=== PATIENT | male | born 1965 | race Caucasian/White ===

== ENCOUNTER 2020-10-04 07:02 | Emergency (ER) | payer OTHER, SELFPAY ==
--- NOTE | ~2020-10-04 | XR_ITS ---
EXAMINATION: XR KNEE, LEFT CLINICAL INFORMATION: Wound near prior amputation left leg. COMPARISON: Left femur 03/18/2018 TECHNIQUE: Imaging of the distal left femur is performed in AP and crosstable lateral projections. FINDINGS: There is an tsnfz-yfy-tujh amputation again seen. The distal femur shows no fracture or interval destructive process. No periostitis. No gas tracking in the soft tissue planes. There is heterotopic spurring at the amputated and again noted and some benign-appearing dystrophic calcification in the lower thigh soft tissues. XR/XR knee LT 2V IMPRESSION: Status post prior mfska-emb-vrzt amputation. No bony destructive process. No gas tracking in soft tissues.
[2020-10-04 07:26] VITALS: BP 156/99; PULSE 57; RESP 16; TEMP 36.7; O2SAT 98; BMI 20.2
--- NOTE | 2020-10-04 10:33 | ED_ITS ---
HPI - Wound/Laceration General Chief Complaint: Extremity Injury, Lower Stated Complaint: lac to left leg Time Seen by Provider: 10/04/20 09:03 Source: patient and EMS Mode of arrival: EMS Limitations: no limitations History of Present Illness HPI narrative: 55-year-old male with a past medical history of traumatic left uyluc-gdz-tmty amputation, atrial fibrillation, hypertension, hepatitis-C, seizure disorder, fibromyalgia and depression presenting to the ED with complaints of a wound to the site of the left BKA for approximately 1 month worsened the past few days with clear colored drainage for the patient. He denies any fevers, chills, dizziness, headaches, chest pain, shortness of breath, dyspnea on exertion, orthopnea, palpitations, nausea/vomiting/abdominal pain/diarrhea, dysuria, hematuria, weakness or any other symptom complaints or concerns at this time. Onset (ago): month(s) (One month worse within the past few days) Extremity Location: left: knee (At the site of the BKA) Associated symptoms: pain Related Data Previous Rx's Medication Instructions Recorded acetaminophen 500 mg tablet 1,000 mg PO QID PRN #14 tab 10/04/20 (Tylenol Extra Strength) cephalexin 500 mg capsule 500 mg PO BID 10 Days #20 cap 10/04/20 doxycycline monohydrate 100 mg 100 mg PO BID 10 Days #20 cap 10/04/20 capsule Allergies Allergy/AdvReac Type Severity Reaction Status Date / Time No Known Allergies Allergy Unverified 11/03/19 16:41 [No Known Allergies*] Review of Systems Review of Systems: Constitutional : No Fever, No Chills, Cardiovascular : No Chest Pain, No SOB Respiratory : No Dyspnea Gastrointestinal : No abdominal pain Musculoskeletal : No Joint Swelling Skin : positive skin wound, No lacerations, No Foreign bodies, No rash, No surrounding erythema Neuro : No Weakness, No Numbness/tingling Psych : No SI/HI/thoughts of self injury Yes all other systems are reviewed and are negative [facility] Past Medical History Attestation statement: The following information was validated with the patient. Social History Social History Advance Directives: No Advance Directives Information Provided: No Physical Exam Vital Signs: Vital Signs: Last Vital Signs Temp 98.1 F 08/19/21 07:26 Pulse 57 10/04/20 07:26 Resp 16 10/04/20 07:26 BP 156/99 H 10/04/20 07:26 Pulse Ox 98 10/04/20 07:26 Body Mass Index 20.2 vital signs have been reviewed as normal and appeared to be correct. Blood pressure hypertensive 156/99 Heart rate normal. Respiration rate normal. Temperature normal. Oxygen saturation normal. Appearance: Alert. Oriented X3. No acute distress. Head: Normal external exam. Normocephalic. Atraumatic. Eyes: PERRLA. EOMI. Conjunctiva and sclera normal. Eyelids normal. ENT: Pharynx normal. Uvula midline. Moist mucous membranes. Neck: Normal inspection. Neck supple. FROM. No adenopathy. No meningeal signs. CVS: Normal heart rate and rhythm. Heart sound normal. Pulses normal throughout. No murmurs/rales/gallops. Respiratory: No respiratory distress. Painless inspiration. Breath sounds normal. No wheezes/rales/rhonchi noted. Chest nontender. No accessory muscle usage noted or decreased air movement noted. Back: Full range of motion noted. No rashes/lesion/induration/fluctuance or signs of infection noted. Skin: Skin warm and dry. Normal skin color. Normal skin turgor. At the site of the left BKA patient has a superficial wound with mild clear drainage noted. No streaking/induration/fluctuance/surrounding erythema/foreign bodies or purulent drainage noted. Otherwise no additional rashes/lesions/lacerations noted. Extremities: All otherExtremities exhibit normal range of motion and nontender. Neuro: Oriented X 3. No motor deficit. No sensory deficit. Reflexes normal. Normal Steady gait. No focal neuro deficits noted. Course Course Course Narrative: 9:15am - 55-year-old male with a past medical history of traumatic left tthmp-jmm-msey amputation, atrial fibrillation, hypertension, hepatitis-C, seizure disorder, fibromyalgia and depression presenting to the ED with complaints of a wound to the site of the left BKA for approximately 1 month worsened the past few days with clear colored drainage for the patient. On exam patient is noted to have all superficial wound with clear colored drainage to the site of the stump. No surrounding erythema/streaking/induration/foreign bodies. Plan: I discussed this patient with Dr. Sykes and we both believe that the patient does not need any labs therefore x-ray ordered. Reevaluation(s) Reevaluation #1: - Xray negative for any acute processes. My plan was to discharge the patient on p.o. antibiotics doxycycline and Keflex with Tylenol and when I went into the room patient reported that he uses heroin and he last used last night and he is interested in detox at the [facility] therefore patient is placed in physician observation at this time because the patient needs more time to be evaluated by the care team for possible placement for detox will continue to monitor until then. Time: 10:51 Reevaluation #2: - care team attempted to place the patient in detox although there are no detox beds available at this time therefore he was given information so he can continue to attempt for detox beds. Otherwise will discha rge with antibiotics and referral to the wound clinic. Patient understands agrees with this plan. Time: 15:11 MDM - Wound/Laceration Medical Records Attestation: I reviewed the patient's medical records. Lab Data Labs: Lab Results 10/04/20 Range/Units 11:32 Urine Opiates Screen POSITIVE H (Not Detect) Urine Fentanyl Screen POSITIVE H (Not Detect) Ur Barbiturates Screen Not Detected (Not Detect) Ur Phencyclidine Scrn Not Detected (Not Detect) Ur Amphetamines Screen Not Detected (Not Detect) U Benzodiazepines Scrn Not Detected (Not Detect) Urine Cocaine Screen POSITIVE H (Not Detect) U Marijuana (THC) Screen POSITIVE H (Not Detect) Imaging Data Left femur x-ray: Attestation: I personally reviewed and interpreted this imaging study as follows: Radiologist's impression: FINDINGS: There is an zifzh-odz-wqin amputation again seen. The distal femur shows no fracture or interval destructive process. No periostitis. No gas tracking in the soft tissue planes. There is heterotopic spurring at the amputated and again noted and some benign-appearing dystrophic calcification in the lower thigh soft tissues. ? XR/XR knee LT 2V IMPRESSION: Status post prior khemh-hgt-vlfk amputation. No bony destructive process. No gas tracking in soft tissues. ? Discharge Plan Discharge Clinical Impression: Wound cellulitis, Pressure ulcer Patient Disposition: Home, Self-Care Instructions: Wound Infection (ED), Cellulitis (ED), Wound Healing and Your Diet (ED), Pressure Injury (ED) Prescriptions: New acetaminophen [Tylenol Extra Strength] 500 mg tablet 1,000 mg PO QID PRN (Reason: fever or pain) Qty: 14 RF: 0 doxycycline monohydrate 100 mg capsule 100 mg PO BID 10 Days Qty: 20 RF: 0 cephalexin 500 mg capsule 500 mg PO BID 10 Days Qty: 20 RF: 0 Referrals: [facility] [Provider Group] - 2 days [facility] [Provider Group] - 2 days Print Language: Bengali
[2020-10-04] MEDS: cephALEXin 500 MG CAPSULE PO (11:30)
[2020-10-04 12:22] LABS: Amphetamine Screen Urine Not Detected (Not Detect); Barbiturates, Urine Not Detected (Not Detect); Benzodiazepines Screen Urine Not Detected (Not Detect); Cannabinoid Screen Urine POSITIVE (Not Detect); Cocaine Screen Urine POSITIVE (Not Detect); Opiate Screen Urine POSITIVE (Not Detect); Phencyclidine Screen Urine Not Detected (Not Detect)
[2020-10-04 12:33] LABS: Fentanyl, urine POSITIVE (Not Detect)
--- NOTE | 2020-10-04 13:51 | MHC.RECOVSUP ---
? Reason for consult:Continuity of care o Current location: ED-2 o Identified substance use concern:Heroin - Withdrawal - Seeking ATS (detox) - Support ? Intervention: o ATS bed search started/completed/in process o Community resources provided o Harm reduction discussion ? Plan: o Referral to [facility] o Patient awaiting crisis evaluation o Patient to follow up with [facility] after discharge ? Additional information: Pt. seeking detox
--- NOTE | 2020-10-04 14:59 | MHC.RECOVRN ---
T/w made aware by recovery assistant that there are not ATS beds available and pt has been made aware. ED Clinical Coordinator notified.
== END 2020-10-04 15:52 | disposition home or self-care (01) ==
PROVIDERS: Physician Assistant Medical; Emergency Provider Internal Medicine; PCP Internal Medicine
DX: L03.116 Cellulitis of left lower limb (principal); L89.899 Pressure ulcer of other site, unspecified stage; F19.90 Other psychoactive substance use, unspecified, uncomplicated; Z89.512 Acquired absence of left leg below knee; I10 Essential (primary) hypertension; I48.91 Unspecified atrial fibrillation; B19.20 Unspecified viral hepatitis C without hepatic coma
CPT/HCPCS: 73560; 80307; 99283

== ENCOUNTER 2021-08-07 20:32 | Emergency (ER) | payer OTHER, SELFPAY ==
[2021-08-07 20:40] VITALS: BP 132/81; PULSE 100; O2SAT 98; BMI 22.3
--- NOTE | 2021-08-07 21:03 | ED.OVERDOSE ---
HPI - Overdose General Chief Complaint: Overdose Stated Complaint: OVERDOSE Time Seen by Provider: 08/07/21 20:59 Source: patient Mode of arrival: EMS Limitations: no limitations History of Present Illness HPI Narrative: 56-year-old male who presents emergency department for evaluation overdose treated with intranasal Narcan prior to arrival. patient states that he injected to bags of fentanyl. He states that he does use fentanyl several times a week. He denied being ill prior to using the fentanyl. The patient was found unresponsive by the police and he was given 2 doses intranasal Narcan 4 mg. The patient then woke up and was transported to the emergency department by ambulance. complaint: accidental overdose Onset (ago): minute(s) (30) Timing confirmed by: other ( Bystander, treated by police) How Overdose Was Discovered: other ( bystander) Context: Accidental Overdose: wanted to get high Treatments Prior to Arrival: narcan ( intranasal Narcan 4 mg x 2) Related Data Previous Rx's Medication Instructions Recorded acetaminophen 500 mg tablet 1,000 mg PO QID PRN fever or pain 10/04/20 (Tylenol Extra Strength) #14 tabs cephalexin 500 mg capsule 500 mg PO BID 10 days #20 caps 10/04/20 doxycycline monohydrate 100 mg 100 mg PO BID 10 days #20 caps 10/04/20 capsule Allergies Allergy/AdvReac Type Severity Reaction Status Date / Time No Known Allergies Allergy Verified 08/07/21 20:40 [No Known Allergies*] Review of Systems Review of Systems: Yes all other systems are reviewed and are negative [facility] Past Medical History [facility] Narrative: past medical history: Hepatitis-C, depression, fibromyalgia, seizure disorder. Past surgical history: Left above the knee amputation. Social history: The patient does smoke cigarettes, denies alcohol use. He does use injection opiates at least twice a week. Social History Social History Alcohol intake: never Patient Tobacco Use Status: Current everyday Tobacco user Use of substances other than those prescribed or required for medical reasons: Yes Substance Use Type: Heroin Advance Directives: No Advance Directives Information Provided: Yes Physical Exam Vital Signs: Vital Signs: Last Vital Signs Temp 98.0 F 08/08/21 06:42 Pulse 72 08/08/21 06:42 Resp 15 08/08/21 06:42 BP 129/85 08/08/21 06:42 Pulse Ox 95 08/08/21 06:42 O2 Del Method 08/08/21 06:42 BMI result Body Mass Index 22.3 Const: Other: Patient is somnolent but arousable, he speaks in a very soft was but answers all questions appropriately. He falls back asleep when he is not stimulated. HEENT: Head: Yes normal to inspection, Yes normocephalic and Yes atraumatic Ears: external ears normal General nose exam: Normal external nose present Face and sinus: Yes normal facial exam Mouth: Normal oral and palatal mucosa present Throat: Yes posterior oropharynx normal Eyes: General: appearance normal, both eyes and all related structures Pupils: Equal, round and reactive pupils present Neck: Neck: Yes normal visual inspection, Yes no lymphadenopathy, Yes trachea midline and Yes supple Chest: Chest palpation & inspection: normal inspection of the chest and normal palpation of entire chest wall Resp: Effort & Inspection: normal respiratory effort and able to speak in complete sentences Auscultation: clear to auscultation bilaterally Cardio: Rate: regular rate Rhythm: regular rhythm Heart sounds: S1 normal heart sound present, S2 normal heart sound present and no murmurs GI: Inspection: Yes normal to inspection Palpation (GI): Soft to palpation, nontender and no guarding Auscultation: normal bowel sounds : General: Yes no CVA tenderness Back/Spine/Pelvis: Back: no CVA tenderness Skin: General skin exam: no rashes or lesions noted Neuro: Cranial nerves: Yes CN's II-XII intact bilaterally and Yes Equal, round and reactive pupils present Cognition (Neuro): normal cognition Motor exam (neuro): 5/5 motor strength present throughout Extrem: General: Yes normal to inspection Psych: Appearance: grossly normal Speech and movement: Other speech and movement exam findings present (Psych) ( Patient is somnolent but arousable) Affect: normal affect Course Course Course Narrative: 56-year-old male who presents emergency department for an unintentional overdose, the patient states that he injected 2 bags of fentanyl. Patient was found by bystanders and police administered 2 doses of intranasal Narcan 4 mg each. Patient states that he was not sick in any way prior to injecting this drug. On examination the patient is somnolent but arousable, falls back asleep when not stimulated his exam is otherwise unremarkable. The patient will be placed on a cardiac and O2 saturation monitor and watch for at least 2-4 hours. I will consult our care team for a SUDE evaluation. 0819:The patient is still waiting for SUDE evaluation. He is interested in trying to get into a detox program. The patient will be kept in the emergency department until he is evaluated. at the end of my shift, the patient's care was turned over to my colleague, Dr. Venita Ponce Discharge Plan Discharge Clinical Impression: Accidental fentanyl overdose Prescriptions: No Action acetaminophen [Tylenol Extra Strength] 500 mg tablet 1,000 mg PO QID PRN (Reason: fever or pain) Qty: 14 0RF doxycycline monohydrate 100 mg capsule 100 mg PO BID 10 Days Qty: 20 0RF cephalexin 500 mg capsule 500 mg PO BID 10 Days Qty: 20 0RF
--- NOTE | 2021-08-07 21:34 | MHC.CARE ---
CARE TEAM met with pt at ED 22H. He was observed lying down with his back facing clinician. He presents with irritable mood. He did not disclose complaint for presenting to ED, stating you should know . He did not provided details of overdose. He expressed interest in receiving substance use treatment and did not further engage in conversation. He turned his back towards clinician and closed his eyes. Pt will be re-assessed once sober.
--- NOTE | 2021-08-07 21:41 | PC.NURSE ---
sewing techniques demonstrator applied, nsr 80-90s, o2 sat mid 90s, will continue to monitor.
[2021-08-07 22:00] VITALS: BP 100/56; PULSE 81; RESP 16; TEMP 36.8; O2SAT 97
--- NOTE | 2021-08-07 23:10 | PC.NURSE ---
Addendum entered by Belle Michelle 08/08/21 07:02: Report given to KALIN Munguia Original Note: report received from Maday
[2021-08-08 04:44] VITALS: BP 104/64; PULSE 55; RESP 12; TEMP 36.1; O2SAT 95
[2021-08-08 06:42] VITALS: BP 129/85; PULSE 72; RESP 15; TEMP 36.7; O2SAT 95
--- NOTE | 2021-08-08 08:26 | HO.SUDE ---
Met with pt in ED22 to discuss substance use. Upon approach, pt laying in bed, eyes closed and resting. Pt easily awoken. Pt fairly difficult to engage in conversation, guarded. Pt reports using one bag of heroin last night, IV, which resulted in overdose. Pt denies other substances. Pt states I was clean for over a year and one bag almost took my life. Pt reports over the past year utilizing meetings to maintain recovery. When asked about past tx, including ATS, pt states Oh yeah, many times. Pt would like ATS at this time, t/w will send referrals. Provider aware.
--- NOTE | 2021-08-08 09:31 | MHC.RECOVRN ---
Attempted to have pt complete phone intake with Andria Golden, however, pt states No, I'm leaving. I'm not doing all that. Pt immediately begins asking to leave and to retrieve belongings. Security and RN aware.
== END 2021-08-08 09:15 | disposition home or self-care (01) ==
PROVIDERS: Emergency Provider Emergency Medicine Emergency Medical Services; PCP Family Medicine
DX: T40.1X1A Poisoning by heroin, accidental (unintentional), initial encounter (principal); Y92.9 Unspecified place or not applicable; F17.200 Nicotine dependence, unspecified, uncomplicated; Z71.6 Tobacco abuse counseling; Z71.51 Drug abuse counseling and surveillance of drug abuser; Z79.899 Other long term (current) drug therapy
CPT/HCPCS: 99284

== ENCOUNTER 2021-09-26 22:28 | Emergency (ER) | payer OTHER, SELFPAY ==
--- NOTE | 2021-09-26 22:34 | ED_ITS ---
HPI - Overdose General Chief Complaint: Overdose Stated Complaint: OD Time Seen by Provider: 09/26/21 22:33 Source: patient, EMS and old records reviewed Mode of arrival: EMS Limitations: no limitations History of Present Illness HPI Narrative: 56-year-old male brought in by ambulance for evaluation of possible drug abuse and overdose that responded to Narcan. This is a 56-year-old male homeless [place] the park by the police unresponsive patient was given 12 mg total of Narcan and require BMV bagging, patient in ED decline using any drugs today however reportedly by EMS recreational drug bags was found around him in the park and IV track indu, patient did not admit to use drug today. Patient is awake now and decline intentional SI or HI. Related Data Home Medications Medication Instructions Recorded Confirmed gabapentin 300 mg capsule cap PO 08/08/21 hydrochlorothiazide 25 mg tablet 1 tab PO DAILY 08/08/21 08/08/21 levetiracetam 500 mg tablet 1 tab PO BID 08/08/21 08/08/21 sofosbuvir 400 mg-velpatasvir 100 1 tab PO DAILY 08/08/21 08/08/21 mg tablet Allergies Allergy/AdvReac Type Severity Reaction Status Date / Time No Known Allergies Allergy Verified 08/07/21 20:40 [No Known Allergies*] Review of Systems Review of Systems: All other systems are reviewed and are negative Constitutional: Reports as per HPI and Reports no additional constitutional complaints Eyes: Reports as per HPI and Reports no additional eye complaints Reports system reviewed and no additional complaints, except as documented Cardiovascular: Reports as per HPI and Reports no additional cardiovascular complaints Respiratory: Reports as per HPI and Reports no additional respiratory complaints Gastrointestinal: Reports as per HPI and Reports no additional gastrointestinal complaints Genitourinary: Reports no additional female genitourinary complaints Musculoskeletal: Reports no additional musculoskeletal complaints Skin/Breast: Reports system reviewed and no additional complaints, except as docu Psychiatric: Reports no additional psychiatric complaints Endocrine: Reports no additional endocrine complaints Hematologic/Lymphatic: Reports no additional hematologic/lymphatic complaints Allergic/Immunologic: Reports no additional allergic/immunologic complaints Reports system reviewed and no additional complaints, except as documented and Reports Abnormal speech present [facility] Social History Social History Alcohol intake: never Patient Tobacco Use Status: Current everyday Tobacco user Substance Use Type: Heroin Advance Directives: No Advance Directives Information Provided: No Physical Exam Vital Signs: Vital Signs: Last Vital Signs Temp 98.3 F 09/27/21 00:25 Pulse 78 09/27/21 00:25 Resp 10 L 09/27/21 00:25 BP 111/74 09/27/21 00:25 Pulse Ox 96 09/27/21 00:25 O2 Del Method 09/27/21 00:25 BMI result Body Mass Index 22.4 Vital signs have been reviewed as appeared to be correct. Blood pressure normal. Heart rate normal. Respiration rate normal. Temperature normal. Oxygen saturation normal. Appearance: Alert. Oriented X3. No acute distress. Head: Normal external exam. Normocephalic. Atraumatic. No Peterson signs noted. No raccoon eyes noted Eyes: PERRLA. EOMI. Conjunctiva and sclera normal. Eyelids normal. ENT: TM's Normal. Pharynx normal. Uvula midline. Moist mucous membranes. No trismus noted. No drooling noted. No muffled voice noted. Neck: Normal inspection. Neck supple. FROM. No adenopathy. Thyroid Normal. No meningeal signs. No neck mass noted. CVS: Normal heart rate and rhythm. Heart sound normal. No murmurs noted. Pulses normal throughout. Respiratory: No respiratory distress. Painless inspiration. Breath sounds normal. No wheezes/rales/rhonchi noted. Chest nontender. No accessory muscle usage noted or decreased air movement noted. Abdomen: Soft and nontender. Bowel sounds normal in all 4 quadrants. No distention noted. No organomegaly noted. No visible injury noted. Back: No CVA tenderness. Full range of motion noted. Skin: Skin warm and dry. Normal skin color. Normal skin turgor. No rashes/lesions/lacerations noted. Extremities: No lower extremity edema. s/p Left AKA Neuro: Oriented X 3. Cranial nerve exam: II-XII are grossly intact No motor deficit. No sensory deficit. Reflexes normal. Course Course Course Narrative: Patient remained in the ED for 8 hours for monitoring and observation, patient did not require more Narcan while in the ED maintained stable vital signs. Patient declined SI or HI, will obtain care team consult in the morning and will discharge the patient with Narcan to take home. Discharge Plan Discharge Clinical Impression: Accidental heroin overdose Patient Disposition: Home, Self-Care Instructions: Opioid Use Disorder (ED) Prescriptions: No Action levetiracetam 500 mg tablet 1 tab PO BID gabapentin 300 mg capsule PO hydrochlorothiazide 25 mg tablet 1 tab PO DAILY sofosbuvir-velpatasvir 400-100 mg tablet 1 tab PO DAILY Referrals: Duc Henson MD [Primary Care Provider] -
[2021-09-26 22:39] VITALS: BP 130/93; PULSE 83; RESP 8; O2SAT 99; BMI 22.4
[2021-09-27 00:25] VITALS: BP 111/74; PULSE 78; RESP 10; TEMP 36.8; O2SAT 96
[2021-09-27 03:15] VITALS: BP 111/74; PULSE 78; RESP 11; TEMP 36.6; O2SAT 96
== END 2021-09-27 08:07 | disposition home or self-care (01) ==
PROVIDERS: Emergency Provider Emergency Medicine; PCP Family Medicine
DX: T40.1X1A Poisoning by heroin, accidental (unintentional), initial encounter (principal); R40.4 Transient alteration of awareness; Y92.830 Public park as the place of occurrence of the external cause; F17.200 Nicotine dependence, unspecified, uncomplicated
CPT/HCPCS: 99283

== ENCOUNTER 2023-06-02 21:38 | Emergency (ER) | payer MEDICAID, SELFPAY ==
--- NOTE | ~2023-06-02 | XR_ITS ---
EXAMINATION: XR ANKLE, RIGHT CLINICAL INFORMATION: Ankle pain and swelling COMPARISON: 12/25/2018 and 12/01/2016 TECHNIQUE: AP, lateral, and mortise views of the right ankle. FINDINGS: Old healed fracture in the mid tibial diaphysis again noted. There is severe degenerative changes involving the ankle joint which have progressed markedly since prior studies of 12/25/2018 and 12/01/2016 there are erosions on the undersurface of the tibia anteriorly which have increased significantly since prior studies although some erosions were present in this region. A ankle joint effusion is present. No acute fractures are seen XR/XR ankle RT min 3V IMPRESSION: Severe progressive degenerative changes in the ankle joint with joint effusion and erosions.
--- NOTE | 2023-06-02 21:48 | MHC.EDTECH ---
patient refusing vitals. stated EMS already took them.
--- NOTE | 2023-06-02 21:52 | ED_ITS ---
HPI - Extremity Problem General Chief complaint: Extremity Injury, Lower Stated complaint: atraumatic right ankle pain, cellulitis, ETOH Time Seen by Provider: 06/02/23 21:47 Source: patient Mode of arrival: EMS Limitations: no limitations History of Present Illness HPI Narrative: patient with past medical history of traumatic left [id number] amputation, atrial fibrillation, hypertension, hepatitis-C, seizure disorder, fibromyalgia and depression presenting to the ED with complaining of pain and swelling of the right ankle joint for last few months patient does drink alcohol and use heroin off and on denies any injury no history of gout Related Data Home Medications ?Medication ?Instructions ?Recorded ?Confirmed gabapentin 300 mg capsule cap PO 08/08/21 hydrochlorothiazide 25 mg tablet 1 tab PO DAILY 08/08/21 08/08/21 levetiracetam 500 mg tablet 1 tab PO BID 08/08/21 08/08/21 sofosbuvir 400 mg-velpatasvir 100 1 tab PO DAILY 08/08/21 08/08/21 mg tablet Previous Rx's ?Medication ?Instructions ?Recorded ibuprofen 600 mg tablet 600 mg PO Q6H PRN fever or pain 06/03/23 #30 tabs prednisone 20 mg tablet 40 mg (2 x 20 mg) PO DAILY #10 tabs 06/03/23 Allergies Allergy/AdvReac Type Severity Reaction Status Date / Time No Known Allergies Allergy Verified 06/02/23 22:04 [No Known Allergies*] Review of Systems 2 Review of Systems: Yes all other systems are reviewed and are negative PMFSH Social History Social History Alcohol intake: never Patient Tobacco Use Status: Current everyday Tobacco user Substance Use Type: Heroin Advance Directives: No Advance Directives Information Provided: Yes Physical Exam 2 Vital Signs: Vital Signs: Last Vital Signs Temp 98.9 F 06/02/23 22:03 Pulse 82 06/02/23 22:03 Resp 18 06/03/23 00:15 BP 159/91 H 06/02/23 22:03 Pulse Ox 98 06/02/23 22:03 O2 Del Method Room Air 06/02/23 22:03 BMI result Body Mass Index 26.3 Appearance: Alert. Oriented X3. No acute distress. ETOH+ CVS: Normal heart rate and rhythm. Pulses normal. Respiratory: No respiratory distress. Equal air entry bilateral, Abdomen: Soft and nontender. Bowel sounds are present, Skin: Skin warm and dry. Normal skin color. Normal skin turgor. Extremities: Left AKA right ankle swollen with mild effusion skin color and temperature normal no open wound no signs of infection Neuro: Oriented X 3. Medications Administered Discontinued Medications Generic Name Dose Route Start Last Admin Trade Name Freq PRN Reason Stop Dose Admin Potassium Bicarbonate 25 meq 06/03/23 00:13 06/03/23 02:06 Potassium Bicarbonate/Cit Ac 25 Meq Tablet.Eff PO 06/03/23 00:14 25 meq ONCE ONE Administration Prednisone 40 mg 06/03/23 00:13 06/03/23 02:06 Prednisone 20 Mg Tablet PO 06/03/23 00:14 40 mg ONCE ONE Administration Medical Decision Making Medical Decision Making [facility] Narrative: Patient alcoholic comes here for right ankle pain and swelling for several months workup showed slightly fusion in the left ankle with elevated uric acid likely patient has gout discharge patient home on prednisone advised to follow with PCP Lab Data [facility] Lab Attestation statement: I reviewed the patient's lab results. 06/02/23 22:33 06/02/23 22:33 Labs: Lab Results 06/02/23 Range/Units 22:33 WBC 10.0 (4.8-10.8) X10*3/uL RBC 5.50 (4.60-5.80) X10*6/uL Hgb 16.6 (14.0-18.0) g/dl Hct 48.2 (42.0-52.0) % MCV 87.6 (80.0-98.0) fL MCH 30.2 (27.0-33.0) pg MCHC 34.4 (31.0-36.0) g/dl RDW 12.1 (11.0-16.0) % Plt Count 263 (160-400) X10*3/uL MPV 11.4 (9.4-12.4) fL Immature Gran % (Auto) 0.1 (0.0-0.4) % Neut % (Auto) 62.0 (45-73) % Lymph % (Auto) 29.8 (20-40) % Dyer % (Auto) 7.2 (2-11) % Eos % (Auto) 0.5 (0-4) % Baso % (Auto) 0.4 (0-2) % Lymph # (Auto) 3.0 (1.2-4.9) X10*3/uL Dyer # (Auto) 0.7 (0.1-1.2) X10*3/uL Eos # (Auto) 0.1 (0.0-0.4) X10*3/uL Baso # (Auto) 0.0 (0.0-0.2) X10*3/uL Abs Immat Gran (auto) 0.01 (0.00-0.03) X10*3/uL Absolute Neuts (auto) 6.2 (2.0-8.3) x10*3/uL Absolute Nucleated RBC 0.000 (0.0-0.012) X10*3/uL Nucleated RBC % (auto) 0.0 (0.0-0.2) /100WBC Sodium 141 (135-145) mmol/L Potassium 3.2 L (3.3-5.1) mmol/L Chloride 106 (96-108) mmol/L Carbon Dioxide 20 L (22-29) mmol/L Anion Gap 18 (12-20) BUN 10 (9-16) mg/dL Creatinine 0.88 (0.5-1.4) mg/dL Estim Creat Clear Calc 97.4 Estimated GFR > 60 Random Glucose 116 H (60-115) mg/dL Uric Acid 7.9 H (3.4-7.0) mg/dL Calcium 9.3 (8.4-10.2) mg/dL Magnesium 2.1 (1.6-2.6) mg/dL Total Bilirubin 0.3 (0.0-1.0) mg/dL AST 28 (5-37) U/L ALT 25 (0-40) U/L Alkaline Phosphatase 95 (39-117) U/L Total Protein 9.6 H (6.5-8.0) g/dL Albumin 4.1 (3.5-5.0) g/dL Ethyl Alcohol 174 mg/dL Discharge Plan Discharge Clinical Impression: Gouty arthritis of right ankle, Alcohol abuse Patient Disposition: Home, Self-Care Instructions: Gout (ED), Abuse of Alcohol (ED) Additional Instructions: Stop drinking alcohol Prednisone as advised for pain and inflammation Ibuprofen for pain Have food containing high potassium leg banana/orange juice Prescriptions: New prednisone 20 mg tablet 40 mg PO DAILY Qty: 10 0RF ibuprofen 600 mg tablet 600 mg PO Q6H PRN (Reason: fever or pain) Qty: 30 0RF No Action levetiracetam 500 mg tablet 1 tab PO BID gabapentin 300 mg capsule PO hydrochlorothiazide 25 mg tablet 1 tab PO DAILY sofosbuvir-velpatasvir 400-100 mg tablet 1 tab PO DAILY Print Language: Hebrew
[2023-06-02 22:03] VITALS: BP 150/90; BP 159/91; PULSE 70; PULSE 82; RESP 18; TEMP 37.2; O2SAT 98; O2SAT 99; BMI 26.3
[2023-06-02 22:37] LABS: MANUAL DIFF FLAG NO
--- NOTE | 2023-06-02 22:39 | PC.NURSE ---
Patient is alert and oriented x3, he is able to make his need known. Patient c/o 10/10 pain in right ankle, Dr. Sykes aware. Labs drawn and sent to lab for processing. Patient resting in a stretcher bed. Plan of care ongoing.
[2023-06-02 22:43] LABS: Basophils Percent Auto 0.4 % (0-2); Eosinophils Absolute Auto 0.1 X10*3/uL (0.0-0.4); Eosinophils Percent Auto 0.5 % (0-4); Hematocrit 48.2 % (42.0-52.0); Hemoglobin 16.6 g/dl (14.0-18.0); Imm Gran Abs Auto 0.01 X10*3/uL (0.00-0.03); Imm Gran Pct Auto 0.1 % (0.0-0.4); Lymphocytes Percent Auto 29.8 % (20-40); Mean Corpuscular HGB Conc 34.4 g/dl (31.0-36.0); Mean Corpuscular Hemoglobin 30.2 pg (27.0-33.0); Mean Corpuscular Volume 87.6 fL (80.0-98.0); Mean Platelet Volume 11.4 fL (9.4-12.4); Monocytes Absolute Auto 0.7 X10*3/uL (0.1-1.2); Monocytes Percent Auto 7.2 % (2-11); Neutrophils Absolute Auto 6.2 x10*3/uL (2.0-8.3); Platelet Count 263 X10*3/uL (160-400); Red Cell Distribution Width 12.1 % (11.0-16.0)
[2023-06-02 22:51] LABS: Alanine Aminotransferase 25 U/L (0-40); Albumin Level 4.1 g/dL (3.5-5.0); Alkaline Phosphatase 95 U/L (39-117); Anion Gap 18 (12-20); Aspartate Amino Transferase 28 U/L (5-37); Bilirubin Total 0.3 mg/dL (0.0-1.0); Blood Urea Nitrogen 10 mg/dL (9-16); Calcium 9.3 mg/dL (8.4-10.2); Carbon Dioxide 20 mmol/L (22-29); Chloride 106 mmol/L (96-108); Creatinine Clr Calc Pharmacy 97.4; Estimated Glomerular Filt Rate > 60; Ethanol 174 mg/dL; Glucose Random 116 mg/dL (60-115); Magnesium 2.1 mg/dL (1.6-2.6); Potassium 3.2 mmol/L (3.3-5.1); Sodium 141 mmol/L (135-145); Total Protein 9.6 g/dL (6.5-8.0); Uric Acid 7.9 mg/dL (3.4-7.0)
[2023-06-03 00:15] VITALS: RESP 18
[2023-06-03] MEDS: predniSONE 20 MG TABLET 40 MG PO (02:06)
[2023-06-03] MEDS: Potassium Bicarbonate/Cit AC 25 MEQ TABLET.EFF PO (02:06)
[2023-06-03 05:10] VITALS: BP 151/84; PULSE 89; RESP 18; TEMP 36.8; O2SAT 98
[2023-06-03 05:11] VITALS: BP 151/84; PULSE 89; RESP 18; TEMP 36.8; O2SAT 98
== END 2023-06-03 05:11 | disposition home or self-care (01) ==
PROVIDERS: Emergency Provider Internal Medicine
DX: M10.9 Gout, unspecified (principal); F10.10 Alcohol abuse, uncomplicated; Y90.6 Blood alcohol level of 120-199 mg/100 ml; I10 Essential (primary) hypertension; I48.91 Unspecified atrial fibrillation; G40.909 Epilepsy, unspecified, not intractable, without status epilepticus; Z89.512 Acquired absence of left leg below knee
CPT/HCPCS: 36415; 73610; 80053; 80307; 83735; 84550; 85025; 99283; 99284

== ENCOUNTER 2023-08-21 16:01 | Emergency (ER) | payer MEDICAID, SELFPAY ==
[2023-08-21 16:08] VITALS: BP 124/72; BP 135/93; PULSE 85; PULSE 90; RESP 16; TEMP 37.1; O2SAT 95; O2SAT 96; BMI 57.8
--- NOTE | 2023-08-21 16:15 | PC.NURSE ---
Pt refusing oil changer, security at bedside.
--- NOTE | 2023-08-21 16:27 | PC.NURSE ---
Pt changed over by security, items placed in decon. Pts wheelchair at bedside.
--- NOTE | 2023-08-21 18:21 | ED.OVERDOSE ---
HPI - Overdose General Chief Complaint: Overdose Stated Complaint: Heroin OD, 4mg narcan given Time Seen by Provider: 08/21/23 18:19 Source: patient and EMS Mode of arrival: EMS Limitations: no limitations History of Present Illness ED Provider: Christen Ham PA-C HPI Narrative: 58-year-old male with a history of opioid use disorder, last use was 2 years ago, history of seizure disorder, AFib, fibromyalgia, depression, hepatitis-C, HTN, left AKA after traumatic injury in 1998, history of recent right ankle repair who presents to the ER via EMS after he was found unconscious on the sidewalk. He was given 4 mg of Narcan by a bystander. He was alert and oriented on ER arrival. He states he is disappointed in himself for using heroin, admitted to using 1 bag today. He recently had surgery on the right ankle and was prescribed Dilaudid and thinks this may have contributed to his relapsed today. He denies any intentional overdose, suicidal thoughts or depression. complaint: accidental overdose Onset (ago): unknown Related Data Home Medications ?Medication ?Instructions ?Recorded ?Confirmed gabapentin 300 mg capsule cap PO 08/08/21 hydrochlorothiazide 25 mg tablet 1 tab PO DAILY 08/08/21 08/08/21 levetiracetam 500 mg tablet 1 tab PO BID 08/08/21 08/08/21 sofosbuvir 400 mg-velpatasvir 100 1 tab PO DAILY 08/08/21 08/08/21 mg tablet Previous Rx's ?Medication ?Instructions ?Recorded ibuprofen 600 mg tablet 600 mg PO Q6H PRN fever or pain 06/03/23 #30 tabs prednisone 20 mg tablet 40 mg (2 x 20 mg) PO DAILY #10 tabs 06/03/23 Allergies Allergy/AdvReac Type Severity Reaction Status Date / Time No Known Allergies Allergy Verified 08/21/23 16:12 [No Known Allergies*] Review of Systems Review of Systems: Yes all other systems are reviewed and are negative [facility] Social History Social History Alcohol intake: never Patient Tobacco Use Status: Current everyday Tobacco user Smoked in Last 30 Days: No Use of substances other than those prescribed or required for medical reasons: Yes Substance Use Type: Heroin Substance Use Frequency: Chronic Longstanding Substance Use Frequency Other:: was 2 years sober, relapsed today Last Used Substance: Just Prior to Admission Any prior treatment program specific to substance use: No Advance Directives: No Advance Directives Information Provided: Yes Physical Exam Vital Signs: Vital Signs: Last Vital Signs Temp 98.7 F 08/21/23 16:08 Pulse 85 08/21/23 16:08 Resp 16 08/21/23 16:08 BP 135/93 H 08/21/23 16:08 Pulse Ox 96 08/21/23 16:08 O2 Del Method Room Air 08/21/23 16:08 BMI result Body Mass Index 57.8 Appearance: Alert. Oriented X3. No acute distress. Head: normocephalic, atraumatic. Eyes: Pupils [place], round and reactive to light ENT: Pharynx normal. No tonsillar swelling or exudate. Neck: Normal inspection. Neck supple. CVS: Normal heart rate and rhythm. Pulses normal. Respiratory: No respiratory distress. Breath sounds normal. Abdomen: Soft and nontender. +BS x4 Skin: Skin warm and dry. Normal skin color. Normal skin turgor. No rashes. Extremities: left [id number] amputation with well-healed stump. Right ankle with surgical incision and sutures in place, no surrounding erythema or discharge. Neuro/psych: Oriented X 3. No motor deficit. No sensory deficit. CN II-XII intact. Normal speech and cognition. Medical Decision Making Medical Decision Making MDM Narrative: 58-year-old male presents to the ER after he was found unconscious on the sidewalk. He required Narcan by a bystander. He arrives to the ER awake, alert, oriented. He spent 2 hours in the emergency department being observed and remained awake and alert. He denies any need for detox, states he has not used heroin in 2 years and is disappointed in himself for using today. No SI or HI. He would like to be discharged home. Patient counseled, sent home with home Narcan. Stable for discharge. Differential Diagnosis Differential Diagnoses: The differential diagnosis associated with the presentation includes Polysubstance overdose, heroin overdose, suicide attempt Independent Historian Clinical information obtained from an independent historian. History obtained from or confirmed by: EMS External Record Review External record reviewed: Outpatient record, Prior outpatient labs and Prior outpatient radiology Prescription Management I considered prescription management with: Other ( Narcan) Chronic Conditions Patient?s care impacted by: Other ( polysubstance abuse, fibromyalgia, hepatitis) Social Determinants Patient?s care significantly limited by Social Determinants of Health including: Other Social Determinant of Health ( wheelchair-bound) Critical Care Time Critical Care Time Critical Care Time: No Discharge Plan Discharge Clinical Impression: Drug overdose Patient Disposition: Home, Self-Care Instructions: Adult Overdose (ED) Additional Instructions: do not do drugs, they can kill you If you develop new or worsening symptoms call 911 or come back to the ER for further evaluation. Prescriptions: No Action levetiracetam 500 mg tablet 1 tab PO BID gabapentin 300 mg capsule PO hydrochlorothiazide 25 mg tablet 1 tab PO DAILY sofosbuvir-velpatasvir 400-100 mg tablet 1 tab PO DAILY prednisone 20 mg tablet 40 mg PO DAILY Qty: 10 0RF ibuprofen 600 mg tablet 600 mg PO Q6H PRN (Reason: fever or pain) Qty: 30 0RF Print Language: Upper Sorbian
[2023-08-21 19:34] VITALS: BP 132/78; PULSE 90; RESP 18; TEMP 36.8; O2SAT 97
[2023-08-21] MEDS: Naloxone HCl Nasal TAKE HOME 4 MG SPRAY 8 MG NOSTRILALT (19:53)
== END 2023-08-21 19:56 | disposition home or self-care (01) ==
PROVIDERS: Emergency Provider Emergency Medicine
DX: T40.1X1A Poisoning by heroin, accidental (unintentional), initial encounter (principal); R40.2A Nontraumatic coma due to underlying condition; Y92.480 Sidewalk as the place of occurrence of the external cause; I10 Essential (primary) hypertension; I48.91 Unspecified atrial fibrillation; F32.A Depression, unspecified; Z87.820 Personal history of traumatic brain injury; F17.200 Nicotine dependence, unspecified, uncomplicated
CPT/HCPCS: 99283; 99285

== ENCOUNTER 2023-08-27 20:17 | Emergency (ER) | payer MEDICAID, SELFPAY ==
[2023-08-27 20:22] VITALS: BP 132/80; PULSE 78; O2SAT 91
[2023-08-27 20:25] VITALS: BP 129/75; PULSE 85; RESP 17; TEMP 37; O2SAT 96
[2023-08-27 20:30] VITALS: BP 129/70; PULSE 83; RESP 18; TEMP 36.8; O2SAT 93; BMI 27.7
--- NOTE | 2023-08-27 20:55 | ED_ITS ---
HPI - General Adult General Chief complaint: ETOH/Substance Use Stated complaint: ETOH Time Seen by Provider: 08/27/23 20:23 Source: patient, RN notes reviewed and old records reviewed Mode of arrival: EMS History of Present Illness ED Provider: Johanne BANKS narrative: 58-year-old male with medical history significant for AFib, seizure disorder, depression, hepatitis-C, hypertension presents to the ER via EMS after being found sleeping [place] bus [place]. EMS reports suspecting alcohol and drug abuse which the patient denies today It is difficult to get an accurate history are the patient is he is not entirely cooperative The patient is not combative it is difficult to redirect He states that he feels well and offers no complaints The patient does note that he has a recent right ankle repair at [facility] He reports following up with the with the orthopedics yesterday at the office He states that he has no issues with the right ankle He denies suicidality Related Data Home Medications ?Medication ?Instructions ?Recorded ?Confirmed gabapentin 300 mg capsule cap PO 08/08/21 hydrochlorothiazide 25 mg tablet 1 tab PO DAILY 08/08/21 08/08/21 levetiracetam 500 mg tablet 1 tab PO BID 08/08/21 08/08/21 sofosbuvir 400 mg-velpatasvir 100 1 tab PO DAILY 08/08/21 08/08/21 mg tablet Previous Rx's ?Medication ?Instructions ?Recorded ibuprofen 600 mg tablet 600 mg PO Q6H PRN fever or pain 06/03/23 #30 tabs prednisone 20 mg tablet 40 mg (2 x 20 mg) PO DAILY #10 tabs 06/03/23 Allergies Allergy/AdvReac Type Severity Reaction Status Date / Time No Known Allergies Allergy Verified 08/27/23 20:46 [No Known Allergies*] Review of Systems Constitutional: Constitutional: Denies body ache(s), Denies chills and Denies headache(s) Eyes: Eyes: Denies blurry vision ENT: Denies headache(s) Cardiovascular: Cardiovascular: Denies chest pain and Denies dyspnea Respiratory: Respiratory: Denies cough and Denies dyspnea Musculoskeletal: Musculoskeletal: Denies arthralgias, Denies joint swelling and Denies limited range of motion Integumentary/Breasts: Skin/Breast: Denies rash Neurologic: Denies headache(s) [facility] Social History Social History Alcohol intake: never Patient Tobacco Use Status: Current everyday Tobacco user Substance Use Type: Heroin Advance Directives: No Advance Directives Information Provided: No Do you have a plan to hurt others: No Plan Physical Exam ED Vital Signs: Vital Signs - 24 hr 08/27/23 20:25 08/27/23 20:30 Temperature 98.6 F 98.3 F Pulse Rate 85 83 Respiratory Rate 17 18 Blood Pressure 129/75 129/70 Pulse Oximetry 96 93 Oxygen Delivery Method Room Air Room Air BMI result Body Mass Index 27.7 Const General: healthy appearing, comfortable, no acute distress, alert and awake; No cooperative Nutritional Appearance: well nourished Orientation/consciousness: patient oriented x3 HENMT Head: Yes normocephalic and Yes atraumatic Eyes Eyelids: Yes eyelids normal Conjunctivae: conjunctivae normal Sclerae: sclerae normal Corneas: corneas normal Pupils: Equal, round and reactive pupils present EOM: EOMs intact bilaterally Neck Neck: Yes full ROM Resp Effort & Inspection: normal respiratory effort, able to speak in complete sentences and not labored Cardio Rate: regular rate Rhythm: regular rhythm Skin General skin exam: elasticity normal Neuro General: patient oriented x3 Cranial nerves: Yes Equal, round and reactive pupils present and Yes Bilaterally intact EOM present Extrem Other: Left AKA Psych Other: Patient's thought process is somewhat sporadic. He is difficult to redirect. The patient has some manic tendencies. He is quite restless in the stretcher Course Reevaluation(s) Reevaluation #1: Patient now very agitated, when I asked him what is wrong he is screaming that he wants to get out of here. He has no complaints vitals are stable he will be discharged Time: 21:30 Medical Decision Making Medical Decision Making MDM Narrative: 58-year-old male presents for evaluation after being found sleeping at a bus stop. He offers no complaints. He denies any alcohol or substance abuse but is slightly agitated and uncooperative. I suspected he is not being entirely truthful in regards to any substance abuse. However the patient is nontoxic appearing, he is not suicidal. Plan to allow the patient to rest and re- evaluate Differential Diagnosis Differential Diagnoses: The differential diagnosis associated with the presentation includes Substance abuse Polysubstance abuse Agitation Arabella Discharge Plan Discharge Clinical Impression: Agitation Patient Disposition: Home, Self-Care Instructions: Polysubstance Abuse (ED) Additional Instructions: Return for new or worsening symptoms Prescriptions: No Action levetiracetam 500 mg tablet 1 tab PO BID gabapentin 300 mg capsule PO hydrochlorothiazide 25 mg tablet 1 tab PO DAILY sofosbuvir-velpatasvir 400-100 mg tablet 1 tab PO DAILY prednisone 20 mg tablet 40 mg PO DAILY Qty: 10 0RF ibuprofen 600 mg tablet 600 mg PO Q6H PRN (Reason: fever or pain) Qty: 30 0RF Print Language: Panamanian
[2023-08-27 21:34] VITALS: BP 129/70; PULSE 83; RESP 18; TEMP 36.8; O2SAT 93
== END 2023-08-27 21:36 | disposition home or self-care (01) ==
PROVIDERS: Emergency Provider Emergency Medicine
DX: R45.1 Restlessness and agitation (principal); F19.10 Other psychoactive substance abuse, uncomplicated
CPT/HCPCS: 99283

== ENCOUNTER 2023-08-30 23:39 | Emergency (ER) | payer MEDICAID, SELFPAY ==
--- NOTE | 2023-08-30 | ECG_ITS ---
Test Reason : OVERDOSE Blood Pressure : / mmHG Vent. Rate : 084 BPM Atrial Rate : 084 BPM P-R Int : 160 ms QRS Dur : 090 ms QT Int : 372 ms P-R-T Axes : 070 064 062 degrees QTc Int : 439 ms Normal sinus rhythm Normal ECG When compared with ECG of 14-JAN-2019 15:15, No significant change was found Referred By: Generic ED Physician Electronically Signed By:WILBERTO CRAWFORD MD
[2023-08-30 23:45] VITALS: BP 140/84; BP 140/98; PULSE 106; PULSE 80; RESP 12; TEMP 36.5; O2SAT 100; O2SAT 97; BMI 21.3
[2023-08-31] VITALS: BP 125/94; PULSE 78; RESP 24; TEMP 36.5; O2SAT 94
[2023-08-31 00:31] LABS: Hematocrit 41.3 % (42.0-52.0); Hemoglobin 13.7 g/dl (14.0-18.0); Mean Corpuscular HGB Conc 33.2 g/dl (31.0-36.0); Mean Corpuscular Hemoglobin 30.4 pg (27.0-33.0); Mean Corpuscular Volume 91.6 fL (80.0-98.0); Mean Platelet Volume 11.5 fL (9.4-12.4); NRBC Pct Auto 0.3 /100WBC (0.0-0.2); PLT CLUMP 1; Red Blood Count 4.51 X10*6/uL (4.60-5.80); Red Cell Distribution Width 13.5 % (11.0-16.0)
[2023-08-31 00:35] LABS: White Blood Count 6.9 X10*3/uL (4.8-10.8)
[2023-08-31 00:36] LABS: Platelet Count 237 X10*3/uL (160-400)
[2023-08-31 00:42] LABS: Alanine Aminotransferase 17 U/L (0-40); Albumin Level 3.8 g/dL (3.5-5.0); Anion Gap 21 (12-20); Aspartate Amino Transferase 39 U/L (5-37); Bilirubin Total 0.4 mg/dL (0.0-1.0); Blood Urea Nitrogen 12 mg/dL (9-16); Calcium 9.2 mg/dL (8.4-10.2); Carbon Dioxide 16 mmol/L (22-29); Chloride 106 mmol/L (96-108); Creatinine Clr Calc Pharmacy 71.8; Estimated Glomerular Filt Rate > 60; Ethanol < 10 mg/dL; Glucose Random 154 mg/dL (60-115); Potassium 3.7 mmol/L (3.3-5.1); Sodium 139 mmol/L (135-145); Total Protein 8.7 g/dL (6.5-8.0)
--- NOTE | 2023-08-31 00:47 | ED_ITS ---
HPI - Overdose General Chief Complaint: ETOH/Substance Use Stated Complaint: OD Time Seen by Provider: 08/31/23 00:25 Source: EMS Mode of arrival: EMS Limitations: altered mental status History of Present Illness ED Provider: Dr. Melba Ken HPI Narrative: Patient comes to the emergency room via ambulance. Today, patient was found unresponsive by [employer] in the street. Patient known to use drugs. Per EMS, the fire department gave the patient 12 mg of Narcan within 5 seconds. Patient woke up immediately, reports that he used a bag of heroin and drank a few beers. Patient was awake and alert when EMS arrived. Here in the ED, patient is somnolent, easily arousable, falls right back asleep. Denies any SI or HI, denies any falls or injuries. Related Data Home Medications ?Medication ?Instructions ?Recorded ?Confirmed gabapentin 300 mg capsule cap PO 08/08/21 hydrochlorothiazide 25 mg tablet 1 tab PO DAILY 08/08/21 08/08/21 levetiracetam 500 mg tablet 1 tab PO BID 08/08/21 08/08/21 sofosbuvir 400 mg-velpatasvir 100 1 tab PO DAILY 08/08/21 08/08/21 mg tablet Previous Rx's ?Medication ?Instructions ?Recorded ibuprofen 600 mg tablet 600 mg PO Q6H PRN fever or pain 06/03/23 #30 tabs prednisone 20 mg tablet 40 mg (2 x 20 mg) PO DAILY #10 tabs 06/03/23 Allergies Allergy/AdvReac Type Severity Reaction Status Date / Time No Known Allergies Allergy Verified 08/31/23 00:17 [No Known Allergies*] Review of Systems 2 Review of Systems: Constitutional : No Weight loss, No Fever, No Chills, No Night Sweats, No Fatigue, No Malaise ENT/Mouth : No Hearing loss, No Ear Pain, No Nasal Congestion, No Sinus Pain, No Hoarseness, No sore throat, No Rhinorrhea, No Swallowing Difficulty Eyes: No Eye Pain, No Swelling, No Redness, No Foreign Body, No Discharge, No Vision Changes Cardiovascular : No Chest Pain, No SOB, No Dyspnea on Exertion, No Orthopnea, No Edema, No Palpitations Respiratory : No Cough, No Sputum, No Wheezing, No Smoke Exposure, No Dyspnea Gastrointestinal : No Nausea, No Vomiting, No Diarrhea, No Constipation, No abdominal Pain, No Hematochezia, No Melena Genitourinary : no irregular bleeding, No Dysuria, No Urinary Frequency, No Hematuria, No Urinary Incontinence, No Urgency, No Flank Pain, No Urinary Flow Changes, No Hesitancy Musculoskeletal : No joint pain, No Myalgias, No Joint Swelling Skin : No Skin Lesions, No rash Neuro : No Weakness, No Numbness, No Paresthesias, No Loss of Consciousness, No Dizziness, No Headache Psych : No Anxiety/Panic, No Depression, No SI/HI/AH/VH, admits to using drugs and alcohol Heme/Lymph: No Bruising, No Bleeding,No Lymphadenopathy Endocrine : No Polyuria, No Polydipsia, No Temperature Intolerance [facility] Past Medical History Medical History (Updated 08/31/23 @ 00:55 by Melba Ken MD) Depression Hypertension Hepatitis C Atrial fibrillation Seizure disorder Surgical History (Updated 08/31/23 @ 00:48 by Melba Ken MD) History of left above knee amputation Social History Social History Alcohol intake: never Patient Tobacco Use Status: Current everyday Tobacco user Substance Use Type: Heroin Advance Directives: No Advance Directives Information Provided: No Do you have a plan to hurt others: No Plan Physical Exam 2 Vital Signs: Vital Signs: Last Vital Signs Temp 97.7 F 08/31/23 00:00 Pulse 78 08/31/23 00:00 Resp 24 H 08/31/23 00:00 BP 125/94 H 08/31/23 00:00 Pulse Ox 94 08/31/23 00:00 O2 Del Method Room Air 08/31/23 00:00 BMI result Body Mass Index 21.3 Const: Other: Appearance: Somnolent, easily arousable, falls back asleep Eyes: Pupils equal, round and reactive to light. ENT: Pharynx normal. Neck: Normal inspection. Neck supple. No lymph nodes noted. No crepitus CVS: Normal heart rate and rhythm. Pulses normal. Normal S1 and S2 Respiratory: No respiratory distress. Breath sounds normal. No Wheezing. No rales Abdomen: Soft and nontender. No rigidity. No distention. Skin: Skin warm and dry. Normal skin color. Normal skin turgor. Extremities: No lower extremity edema. No Lacerations. No Rash Neuro: Oriented X 3. No motor deficit. No sensory deficit. Moving all extremities. No slurred speech. CN 2 through 12 grossly intact Psych: calm somnolent, denies SI or HI Course Course Course Narrative: -all of patient's labs pending -patient denies SI or HI -denies any falls or injuries Medical Decision Making Medical Decision Making [facility] Narrative: -patient's vitals are within normal limits, oxygen saturation 94% on room air. -my interpretation of labs: Chemistry at baseline -reviewing patient's previous records, patient has tested positive for opiates, fentanyl, cocaine -once patient is awake and alert, patient will be assessed again for SI and HI, sude evaluation, and if discharge, patient will be given 8 mg of Narcan for home -pending Hematology, troponin, urine toxicology -physician observation started that 00:56 Differential Diagnosis Differential Diagnoses: The differential diagnosis associated with the presentation includes (As above) Admission/Observation Consideration of admission/observation: Escalation of care including admission/observation considered (Patient is under physician observation waiting to become sober, wake up.) Lab Data [facility] Lab Attestation statement: I reviewed the patient's lab results. 08/31/23 00:14 08/31/23 00:14 Labs: Lab Results 08/31/23 Range/Units 00:14 Sodium 139 (135-145) mmol/L Potassium 3.7 (3.3-5.1) mmol/L Chloride 106 (96-108) mmol/L Carbon Dioxide 16 L (22-29) mmol/L Anion Gap 21 H (12-20) BUN 12 (9-16) mg/dL Creatinine 1.10 (0.5-1.4) mg/dL Estim Creat Clear Calc 71.8 Estimated GFR > 60 Random Glucose 154 H (60-115) mg/dL Calcium 9.2 (8.4-10.2) mg/dL Total Bilirubin 0.4 (0.0-1.0) mg/dL AST 39 H (5-37) U/L ALT 17 (0-40) U/L Total Protein 8.7 H (6.5-8.0) g/dL Albumin 3.8 (3.5-5.0) g/dL Ethyl Alcohol < 10 mg/dL Discharge Plan Discharge Clinical Impression: Overdose Patient Disposition: Still a Patient Instructions: Adult Overdose (ED) Additional Instructions: Please follow-up with your primary care physician tomorrow. If you have any worsening or new symptoms, please return to the emergency room or call 911 Prescriptions: No Action levetiracetam 500 mg tablet 1 tab PO BID gabapentin 300 mg capsule PO hydrochlorothiazide 25 mg tablet 1 tab PO DAILY sofosbuvir-velpatasvir 400-100 mg tablet 1 tab PO DAILY prednisone 20 mg tablet 40 mg PO DAILY Qty: 10 0RF ibuprofen 600 mg tablet 600 mg PO Q6H PRN (Reason: fever or pain) Qty: 30 0RF Print Language: Hungarian
[2023-08-31 01:54] LABS: Troponin-I High Sensitivity 9.4 ng/L (<3.5-35.0)
[2023-08-31 02:00] VITALS: BP 123/87; PULSE 66; RESP 16; TEMP 36.6; O2SAT 98
[2023-08-31 04:00] VITALS: BP 115/76; PULSE 67; RESP 16; TEMP 37.2; O2SAT 95
[2023-08-31 06:00] VITALS: BP 130/80; PULSE 62; RESP 16; TEMP 37.1; O2SAT 96
[2023-08-31 06:36] LABS: Amphetamine Screen Urine Not Detected (Not Detect); Barbiturates, Urine Not Detected (Not Detect); Benzodiazepines Screen Urine Not Detected (Not Detect); Buprenorphine Scr Not Detected (Not Detect); Cannabinoid Screen Urine POSITIVE (Not Detect); Cocaine Screen Urine POSITIVE (Not Detect); Fentanyl, urine POSITIVE (Not Detect); Methadone Screen, Urine Not Detected (Not Detect); Opiate Screen Urine POSITIVE (Not Detect); Oxycodone Screen Urine Not Detected (Not Detect); Phencyclidine Screen Urine Not Detected (Not Detect)
[2023-08-31 09:46] VITALS: BP 118/61; PULSE 63; RESP 18; O2SAT 98
[2023-08-31 10:33] LABS: Troponin-I High Sensitivity 7.9 ng/L (<3.5-35.0)
[2023-08-31 10:54] VITALS: BP 121/83; PULSE 90; RESP 16; TEMP 36.8; O2SAT 98
== END 2023-08-31 10:55 | disposition home or self-care (01) ==
PROVIDERS: Physician Assistant Medical; Emergency Provider Emergency Medicine
DX: T40.1X1A Poisoning by heroin, accidental (unintentional), initial encounter (principal); Y92.488 Other paved roadways as the place of occurrence of the external cause; F17.200 Nicotine dependence, unspecified, uncomplicated; F11.10 Opioid abuse, uncomplicated; Z79.899 Other long term (current) drug therapy; Z71.51 Drug abuse counseling and surveillance of drug abuser; Z51.81 Encounter for therapeutic drug level monitoring
CPT/HCPCS: 36415; 80053; 80307; 84484; 85027; 93005; 99284

== ENCOUNTER → 2023-08-30 23:43 | Outpatient (BNV) | payer MEDICAID, SELFPAY | PROVIDERS: Emergency Provider Emergency Medicine; Visit Provider Internal Medicine Cardiovascular Disease | DX: T40.1X1A Poisoning by heroin, accidental (unintentional), initial encounter (principal) | CPT/HCPCS: 93010 ==